=== PATIENT | male | born 1990 | race Caucasian/White ===

== ENCOUNTER 2018-01-15 22:43 | Emergency (ER) | payer SELFPAY ==
[~2018-01-15] VITALS: Ht 175.3 cm; Wt 86.2 kg
[2018-01-15] MEDS ORDERED: NKM (22:53)
[2018-01-15 22:57] VITALS: BP 122/76
[2018-01-15 23:10] VITALS: BP 122/76
--- NOTE | 2018-01-22 21:59 | Emergency Room Report ---
History of Present Illness General Chief Complaint: General Complaint Source: Patient Present Illness HPI Patient is a 27-year-old male brought in by EMS for altered mental status. Patient had been found increased confusion by sober living. He was noted to have increased confusion. The patient was not vomiting. The history is limited by patient's mental status. Allergies: Coded Allergies: No Known Allergies (Unverified , 01/15/18) Patient History Reviewed Nursing Documentation: PMH: Agreed; PSxH: Agreed Nursing Documentation-PMH Past Medical History: No Stated History Review of Systems All Other Systems: limited - by mental status Physical Exam General Appearance: well appearing, no apparent distress Head: normocephalic, atraumatic Eyes: bilateral eye PERRL ENT: hearing grossly normal, normal voice Neck: full range of motion, supple Respiratory: no respiratory distress, speaking full sentences Musculoskeletal: no calf tenderness Neurologic: alert Psychiatric: mood/affect normal Skin: no rash Medical Decision Making Diagnostic Impression: Primary Impression: Alcohol intoxication ER Course Patient presented for altered mental status. Differential diagnosis included but was not limited to alcohol intoxication, substance abuse, ischemic stroke, subarachnoid hemorrhage, hypoglycemia, spinal cord injury, neurodegenerative disorder, urinary tract infection, hypoxemia. Patient has a benign exam and does not appear to require any further imaging or laboratory testing at this time. Patient was noted to have initially confused mental status. Patient had gradual improvement of neurologic status. At the time of discharge the patient was alert and ambulatory without assistance. Patient was advised to stop drinking alcohol. The patient is advised to follow up with primary care doctor in 1-2 days. Patient is advised to return if any worsening condition or if any changes in status that are concerning. This report is dictated with [employer] die maker trim software which may occasionally lead to discrepancies related to use of this software. Status: improved Disposition: HOME, SELF-CARE Condition: Stable Referrals: NOT CHOSEN IPA/,REFERRING (PCP) Patient Instructions: Alcohol Intoxication Matheus Phillips MD Jan 22, 2018 21:59
== END 2018-01-15 23:15 | disposition home or self-care (01) ==
LOC: EMR 23:05
DX: F10.129 Alcohol abuse with intoxication, unspecified (principal)
CPT/HCPCS: 99284